=== PATIENT | female | born 1975 | race Caucasian/White ===

== ENCOUNTER 2024-08-02 15:59 | Emergency (ER) | payer OTHER, SELFPAY ==
[2024-08-02 16:04] VITALS: BP 148/87
--- NOTE | 2024-08-02 16:04 | ED.GENMED ---
ED Provider Triage
-
Patient seen by provider in Triage?: Seen in Triage
Attestation: A medical screening examination has been initiated by a qualified medical provider. Based on the assessment performed at this time, it has been determined that an emergent medical condition may exist and the patient has been informed
that further medical evaluation and possible additional diagnostic testing may be needed.
HPI:
GENERAL: Alert , in no apparent distress
EYE: No visual abnormalities.
NECK: Trachea midline
ENT: No visible abnormalities.
LUNGS: No acute respiratory distress
NEUROLOGICAL: Alert and oriented
SKIN: Skin intact. No visible changes.
MUSCULOSKELETAL: Moving extremities normally
PSYCH: Normal and appropriate interaction.
This is a medical evaluation conducted in person to initiate diagnostic evaluation and provide initial therapeutics. Please see further documentation by the treating clinician.
History of Present Illness
General
Chief Complaint: Foreign Body Removal
Source: patient
Time Seen by Provider: 08/02/24 16:19
History of Present Illness
History of Present Illness:
49-year-old female presenting to the emergency department for evaluation after she excellently stepped on a wooden toothpick around 5 AM and the toothpick wedged in between her first and second toe. Patient went to the forest technician who removed the
toothpick but there was still question as to a portion of the toothpick being in place. Patient states she still has a little bit of a foreign body sensation although it is somewhat improved from earlier. Patient notes that despite the attempt at
foreign body removal she decided to come to the ER for second opinion. No other injuries or concerns. Tetanus up-to-date
Past History
Past History
ED Past Medical History: Psychiatric (Anxiety)
ED Past Surgical History: Orthopedic
Social History
Tobacco: Non-smoker
Alcohol: Occasional
Drug: None
Living: with family
Employment: Employed
Review of Systems
Review of Systems
All Other Systems: ROS reviewed and negative except as documented in HPI and ROS
Phy Exam
Physical Exam
Physical Exam:
GENERAL: Alert , in no apparent distress
EYE: conjunctiva clear
Head: Normocephalic atraumatic
NECK: Supple,
ENT: mmm.
LUNGS: no acute respiratory distress
NEUROLOGICAL: Alert and oriented
SKIN: Warm and dry, small puncture wound noted in between first and second digit. No visualized foreign body retained. No surrounding erythema. No active bleeding.
MUSCULOSKELETAL: well perfused.
PSYCH: Normal and appropriate interaction.
Scores
Heart Failure Risk
Heart Failure Risk Score: Not Applicable
Heart Score for Chest Pain Patients
STEMI patient?: Not applicable
Withdrawal Assessment of Alcohol
Withdrawal Assessment Completed?: Not applicable
Course
Vital Signs
Initial and Last Documented VS:
Initial Vital Signs
Temp Pulse Resp BP Pulse Ox
98.7 F 73 20 148/87 100
08/02/24 16:04 08/02/24 16:04 08/02/24 16:04 08/02/24 16:04 08/02/24 16:04
Last Documented Vital Signs
Temp Pulse Resp BP Pulse Ox
98.7 F 73 20 148/87 100
08/02/24 16:04 08/02/24 16:04 08/02/24 16:04 08/02/24 16:04 08/02/24 16:04
MDM/Problems Addressed
Differential Diagnosis Includes:
Superficial puncture wound, questionable retained foreign body, no concern for fracture or vascular/nerve injury
MDM/Problems Addressed:
49-year-old female presenting to the ER for evaluation after she excellently stepped on a wooden toothpick earlier this morning. Unclear as to if majority of the toothpick was removed. Unable to palpate the foreign body or visualize the foreign
body. [employer] today attempted to open the area but the patient decided come to the ER for possible imaging. Advised patient that x-ray would not be sufficient to the object being wooden. Unable to obtain MRI here. Will prescribe a short-term
course of Keflex. Motrin/Tylenol as needed for pain. Patient otherwise stable for discharge home and continued outpatient follow-up as needed. Aware of return precautions to the ER.
*Pulse Oximetry
Patient hypoxic: no
*Critical Care Note
Total Time (30-74mins, 75-104mins- exclusive of procedures): Not Applicable
ED Attending Note
-
Portions of this chart may have been created with voice recognition software.� Occasional wrong word or��sound alike� substitutions may have occurred due to the inherent limitations of voice recognition software.
Discharge Plan
Departure
Patient Disposition: Home (Routine Discharge)
Date of Disposition: 08/02/24
Time of Disposition: 16:07
Patient with high blood pressure during this ER visit?: No
Discharge Problem:
Puncture wound of foot, left
Instructions: Foreign Body in Skin (DC)
Prescriptions:
New
cephalexin 500 mg tablet
500 mg PO BID 5 Days Qty: 10 0RF
Interventions
Interventions:
*Risk Screen - Suicide Last Done: 08/02/24 16:04
Discharge Date and Time
Print Language: ARMENIAN
== END 2024-08-02 16:25 | disposition home or self-care (01) ==
LOC: EMR 15:59
PROVIDERS: EMERGENCY PHYSICIAN Emergency Medicine; FAMILY PHYSICIAN Nurse Practitioner
DX: S91.332A Puncture wound without foreign body, left foot, initial encounter (principal); W22.8XXA Striking against or struck by other objects, initial encounter
CPT/HCPCS: 99282